=== PATIENT | female | born 2000 | race Caucasian/White ===

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

== ENCOUNTER 2021-01-27 16:13 | Emergency (ER) | payer OTHER ==
[~2021-01-27] VITALS: Ht 170.2 cm; Wt 68.6 kg
[~2021-01-27 16:13] MED LIST changes: +SENN-121 PO
[2021-01-27 16:15] VITALS: BP 134/75
--- NOTE | 2021-01-27 17:01 | PHYS DOC ---
Past History Past Medical History: Anemia (RACIEL CONNER APRN) Past Surgical History: No Surgical History (RACIEL CONNER APRN) Smoking: Non-smoker Alcohol Use: None Drug Use: None (RACIEL CONNER APRN) General Adult EDM: Chief Complaint: TEST HPI: HPI: Patient is a 20-year-old female who presents with concerns of . Patient states "I have taken several tests at home and all of them been negative". "I have been having breast tenderness, irritability, nausea in the mornings". LMP 01/16. Denies abdominal pain. Denies urinary symptoms. History of anemia. (RACIEL CONNER APRN) Review of Systems: Review of Systems: Constitutional: Denies fever or chills Eyes: Denies change in visual acuity HENT: Denies nasal congestion or sore throat Respiratory: Denies cough or shortness of breath Cardiovascular: Denies chest pain or edema GI: Denies abdominal pain, patient reports nausea in the morning. Denies vomiting : Denies dysuria Musculoskeletal: Denies back pain or joint pain Integument: Denies rash Neurologic: Denies headache, focal weakness or sensory changes Endocrine: Denies polyuria or polydipsia Lymphatic: Denies swollen glands Psychiatric: Denies depression or anxiety (RACIEL CONNER APRN) Allergies: Allergies: Allergies Coded Allergies Type Severity Reaction Last Updated Verified No Known Drug Allergies 01/27/21 No (RACIEL CONNER APRN) Physical Exam: PE: Constitutional: Well developed, well nourished, no acute distress, non-toxic appearance. [] HENT: Normocephalic, atraumatic, bilateral external ears normal, oropharynx moist, no oral exudates, nose normal. [] Eyes: PERRLA, EOMI, conjunctiva normal, no discharge. [] Neck: Normal range of motion, no tenderness, supple, no stridor. [] Cardiovascular:Heart rate regular rhythm, no murmur [] Lungs & Thorax: Bilateral breath sounds clear to auscultation [] Abdomen: Bowel sounds normal, soft, no tenderness, no masses, no pulsatile masses. [] Skin: Warm, dry, no erythema, no rash. [] Back: No tenderness, no CVA tenderness. [] Extremities: No tenderness, no cyanosis, no clubbing, ROM intact, no edema. [] Neurologic: Alert and oriented X 3, normal motor function, normal sensory function, no focal deficits noted. [] Psychologic: Affect normal, judgement normal, mood normal. [] (RACIEL CONNER APRN) Current Patient Data: Labs: Laboratory Tests Test 01/27/21 16:55 POC Urine HCG, Qualitative hcg negative (Negative) Vital Signs: Vital Signs Date Time Temp Pulse Resp B/P (MAP) Pulse Ox O2 Delivery O2 Flow Rate FiO2 01/27/21 16:15 98.1 98 16 134/75 (94) 97 Room Air (RACIEL CONNER APRN) EKG: EKG: [] (RACIEL CONNER APRN) Radiology/Procedures: Radiology/Procedures: [] (RACIEL CONNER APRN) Heart Score: C/O Chest Pain: No Risk Factors: Risk Factors: DM, Current or recent (<one month) smoker, HTN, HLP, family history of CAD, obesity. Risk Scores: Score 0 - 3: 2.5% MACE over next 6 weeks - Discharge Home Score 4 - 6: 20.3% MACE over next 6 weeks - Admit for Clinical Observation Score 7 - 10: 72.7% MACE over next 6 weeks - Early Invasive Strategies (RACIEL CONNER APRN) Course & Med Decision Making: Course & Med Decision Making Pertinent Labs and Imaging studies reviewed. (See chart for details) [] 20-year-old female presents with concerns for . Last menstrual period was January 16. Patient given test in the emergency room which was negative. Informed patient of results. Patient denies any abdominal pain. No indication for CT at this time. Patient will be discharged to home. Patient is hemodynamically stable. (RACIEL CONNER APRN) Dragon Disclaimer: Dragon Disclaimer: This electronic medical record was generated, in whole or in part, using a voice recognition dictation system. (RACIEL CONNER APRN) Attending Co-Sign The patient was seen and interviewed as well as examined at the bedside. The chart was reviewed. The case was discussed. Agree with the plan of care. (CRUZ CORTÉS DO) Departure Departure: Impression: Primary Impression: test negative Disposition: HOME / SELF CARE / HOMELESS Condition: STABLE Referrals: ERIC CHO DO (PCP) Patient Instructions: Breast Tenderness Additional Instructions: You were seen in the emergency room for possible . test emergency room was negative. Please return emergency room for worsening symptoms or concerns EMERGENCY DEPARTMENT GENERAL DISCHARGE INSTRUCTIONS Thank you for coming to [facility] (ED) today and trusting us with you care. We trust that you had a positivie experience in our Emergency Department. If you wish to speak to the department management, you may call the director at [phone]. YOUR FOLLOW UP INSTRUCTIONS ARE FOLLOWS: 1. Do you have a private Doctor? If you do not have a private doctor, please ask for a resource list of physicians or clinics that may be able to assist you with follow up care. 2. The Emergency Physician has interpreted your x-rays. The X-Ray specialist will also review them. If there is a change in the findings, you will be notified in 48 hours when at all possible. 3. A lab test or culture has been done, your results will be reviewed and you will be notified if you need a change in treatment. ADDITIONAL INSTRUCTIONS AND INFORMATION: 1. Your care today has been supervised by a physician who is specially trained in emergency care. Many problems require more than one evaluation for a complete diagnosis and treatment. We recommend that you schedule your follow up appointment as recommended to ensure complete treatment of you illness or injury. If you are unable to obtain follow up care and continue to have a problem, or if your condition worsens, we recommend that you return to the ED. 2. We are not able to safely determine your condition over the phone nor are we able to give sound medical advice over the phone. For these safety reasons, if you call for medical advice we will ask you to come to the ED for further evaluation. 3. If you have any questions regarding these discharge instructions please call the ED at [phone]. SAFETY INFORMATION: In the interest of safety, wellness, and injury prevention; we encourage you to wear your sealbelt, if you smoke; quite smoking, and we encourage family to use a protective helmet for bicycling and other sporting events that present an increased risk for head injury. IF YOUR SYMPTOMS WORSEN OR NEW SYMPTOMS DEVELOP, OR YOU HAVE CONCERNS ABOUT YOUR CONDITION; OR IF YOUR CONDITION WORSENS WHILE YOU ARE WAITING FOR YOUR FOLLOW UP APPOINT MENT; EITHER CONTACT YOUR PRIMARY CARE DOCTOR, THE PHYSICIAN WHOSE NAME AND NUMBER YOU WERE GIVEN, OR RETURN TO THE ED IMMEDIATELY. RACIEL CONNER APRN Jan 27, 2021 17:01 CRUZ CORTÉS DO Jan 28, 2021 06:40
== END 2021-01-27 18:04 | disposition home or self-care (01) ==
LOC: ER 16:13
DX: Z32.02 Encounter for pregnancy test, result negative (principal)
CPT/HCPCS: 81025; 99282

== ENCOUNTER 2021-03-13 22:02 | Emergency (ER) | payer OTHER ==
[~2021-03-13] VITALS: Ht 170.2 cm; Wt 67.4 kg
--- NOTE | 2021-03-13 23:56 | RAD ---
CT HEAD/BRAIN WO History: Reason: CHI, Injury to face and head, headache, light sensitivity / Spl. Instructions: / Hi story: Comparison: None. Technique: Noncontrast CT imaging was performed of the head. Exposure: One or more of the following individualized dose reduction techniques were utilized for thi s examination: 1. Automated exposure control 2. Adjustment of the mA and/or kV according to patient size 3. Use of iterative reconstruction technique. Findings: No intracranial hemorrhage. No mass effect. No hydrocephalus. Extra-axial spaces are unremarkable. Imaged orbits are unremarkable. Imaged paranasal sinuses and mastoid air cells are clear. No acute ca lvarial fracture. Impression: 1. No acute intracranial abnormality. Electronically signed by: Jasson Manley DO (03/13/2021 11:54 PM) [facility]
--- NOTE | 2021-03-13 23:57 | RAD ---
XR FACIAL BONES COMPLETE 3+ VIEWS History: Reason: Injury, hit on left side of face, pain, light sensitivity / Spl. Instructions: / Ak story: Technique: 3 views facial bones. Comparison: None. Findings: No definite fracture. Normal alignment. Patent paranasal sinuses. Impression: 1. No definite acute osseous abnormality. If persistent clinical concern, CT can better evaluate. Electronically signed by: Jasson Manley DO (03/13/2021 11:55 PM) [facility]
--- NOTE | 2021-03-14 00:05 | PHYS DOC ---
Past History Past Medical History: Anemia Past Surgical History: No Surgical History Smoking: Non-smoker Alcohol Use: None Drug Use: None General Adult EDM: Chief Complaint: HEAD INJURY/TRAUMA HPI: HPI: 20-year-old otherwise healthy female comes to the emergency department stating that approximate 24 hours ago while she was at work at [employer] a colleague had accidentally dropped a piece of a tile cutting saw onto her left side of her face and head, denies any loss of consciousness at the time of the injury, she complains of a dull and throbbing pain in the front of her left cheek, some nausea, dizziness and also reported some photophobia but denies any blurred vision or vision loss, no neck pain, no focal numbness/tingling face, arms or legs. No loss of bowel or bladder control, no back pain, chest pain or e xtremity pain at this time. Review of Systems: Review of Systems: General: no fevers , no chills, no general weakness Eyes: no blurred vision, no diplopia Skin: no rashes Neck: no swelling, no neck stiffness, no neck pain Heme: no bleeding, no lymph node enlargement Ear/Nose/Throat: No sore throat, no runny nose, no hearing loss, no difficulty swallowing, positive for left-sided facial pain Cardiovascular: no Chest pain, no palpitations Respiratory: No dyspnea, no cough, no hemoptysis Gastrointestinal: No abdominal pain, \+ nausea, no vomiting, no diarrhea, no blood in stool Genitourinary: no dysuria, no hematuria Musculoskeletal: no back pain, no leg pain, no arm pain, no arthralgia Neurologic: + headaches, no dizziness, no focal numbness/tingling, no focal weakness Psych: no depression, no anxiety, no SI/HI *All review of systems are negative other than what is noted above Allergies: Allergies: Allergies Coded Allergies Type Severity Reaction Last Updated Verified No Known Drug Allergies 03/13/21 No Physical Exam: PE: Gen-well appearing, no acute distress Head: Normocephalic/Atraumatic ENT: atraumatic, although there is some mild tenderness some the left maxillary region, no intraoral injuries, no septal hematoma, no tenderness on the mastoid processes bilaterally PERRLA, EOMI, oropharynx clear Neck: supple, full ROM/strength, no JVD, no nuchal rigidity, there is no midline cervical spinal tenderness Lungs: no distress, speaks in full sentences, Clear to auscultation bilaterally CV: reg rate, rhythm, no murmus/rubs/gallops, peripheral pulses equal in all extremities Abdomen: soft/nontender, no guarding/rebound tenderness, no rigidity, non distended, normoactive bowel sounds Musculoskeletal: full ROM/strength in all extremities, atraumatic, no swelling Back: full range of motion/strength Skin: intact, no rashes Lymph: no gross ATUL Neuro: alert and oriented x 4, CN 2-12 grossly intact, Motor strength is 5/5 in all extremities, no focal sensory deficits, no focal ataxia, ambulatory with steady gait Psych: normal mood/affect Current Patient Data: Vital Signs: Vital Signs Date Time Temp Pulse Resp B/P (MAP) Pulse Ox O2 Delivery O2 Flow Rate FiO2 03/13/21 22:40 98.3 63 20 140/88 (105) 100 Room Air EKG: EKG: [] Radiology/Procedures: Radiology/Procedures: [] Heart Score: C/O Chest Pain: No Risk Factors: Risk Factors: DM, Current or recent (<one month) smoker, HTN, HLP, family history of CAD, obesity. Risk Scores: Score 0 - 3: 2.5% MACE over next 6 weeks - Discharge Home Score 4 - 6: 20.3% MACE over next 6 weeks - Admit for Clinical Observation Score 7 - 10: 72.7% MACE over next 6 weeks - Early Invasive Strategies Course & Med Decision Making: Course & Med Decision Making 20-year-old otherwise healthy female comes to the emergency department complaining of facial pain and symptomatology and exam findings appear to be consistent with a mild concussion, she is neurologically intact however given the nature of this and that it was Workmen's Comp. I will get a head CT to be on the safe side, she is negative according to Nexus criteria no claudication for cervical spinal imaging, do a plain film x-ray of the facial bones, if the CT is negative I will refer her to primary care for close outpatient follow-up Reevaluation at 12:04 AM: The imaging is negative and I believe she stable for discharge for close outpatient primary care follow-up Patient was seen in the ED for close head injury and facial contusion, imaging was negative and she clinically improved, there is no apparent evidence of any emergency medical pathology at this time, patient was advised follow-up with their primary care provider /physician in the next 24-48 hours and to return to the ED before then if any new or worsening / concerning symptoms had developed. All questions and concerns were addressed at time of disposition Will Disclaimer: Dragon Disclaimer: This electronic medical record was generated, in whole or in part, using a voice recognition dictation system. Departure Departure: Impression: Primary Impression: Concussion Qualified Codes: S06.0X0A - Concussion without loss of consciousness, initial encounter Additional Impression: Facial contusion Qualified Codes: S00.83XA - Contusion of other part of head, initial encounter Disposition: HOME / SELF CARE / HOMELESS Condition: IMPROVED Referrals: ERIC COH DO (PCP) 48 hours Patient Instructions: Concussion-SportsMed Additional Instructions: The scans and x-rays are okay, nothing to worry about, you do have a mild concussion, this should get better in the next 5 to 7 days, I wrote you a work note, you can take Tylenol or ibuprofen for pain, please follow-up with primary care in the next 48 hours and return to the nearest emergency room before then if any new or worsening/concerning symptoms develop. If you still continue to experience dizziness I did recommend your primary care doctor order you some blood work especially given that you have a history of anemia, I do not believe that anemia is the reason that you are dizzy especially given the head injury REY MORENO MD Mar 14, 2021 00:05
[2021-03-14 00:42] VITALS: BP 137/75
== END 2021-03-14 00:30 | disposition home or self-care (01) ==
LOC: ER 22:02
DX: S06.0X0A Concussion without loss of consciousness, initial encounter (principal); S00.83XA Contusion of other part of head, initial encounter; Z86.2 Personal history of diseases of the blood and blood-forming organs and certain disorders involving the immune mechanism; W20.8XXA Other cause of strike by thrown, projected or falling object, initial encounter; Y93.89 Activity, other specified; Y92.89 Other specified places as the place of occurrence of the external cause; Y99.8 Other external cause status
CPT/HCPCS: 70150; 70450; 99284-25

== ENCOUNTER 2021-04-08 02:02 | Emergency (ER) | payer OTHER ==
[~2021-04-08] VITALS: Ht 170.2 cm; Wt 67.9 kg
[2021-04-08] MEDS ORDERED: LIDOCAINE/EPI/TETRACAINE TOPICAL GEL 3 ML. TP ONE ×2 (02:20→02:30)
--- NOTE | 2021-04-08 02:26 | PHYS DOC ---
Past History Past Medical History: Anemia Past Surgical History: No Surgical History Smoking: Non-smoker Alcohol Use: None Drug Use: None Adult General Chief Complaint Chief Complaint: EARACHE/EAR PAIN HPI HPI Patient is a 20-year-old female who presents with a chief complaint of earring stuck in her ear. States she was trying to take it out and it got caught and she has been unable to get it out since. Review of Systems Review of Systems Review of systems otherwise unremarkable except noted in HPI Current Medications Current Medications Current Medications Medications (Trade) Dose Ordered Sig/Ambrocio Start Time Stop Time Status Last Admin Dose Admin Lidocaine/ Epinephrine (Let ([id number]) Gel) 3 ml STK-MED ONCE 04/08/21 02:20 04/08/21 02:21 DC Allergies Allergies Allergies Coded Allergies Type Severity Reaction Last Updated Verified No Known Drug Allergies 03/13/21 No Physical Exam Physical Exam Constitutional: Well developed, well nourished, no acute distress, non-toxic appearance. [] HENT: Normocephalic, atraumatic, bilateral external ears normal, oropharynx moist, no oral exudates, nose normal. [] Eyes: conjunctiva normal, no discharge. [] Neurologic: Alert and oriented X 3, no focal deficits noted. [] Psychologic: Affect normal, judgement normal, mood normal. [] EKG EKG [] Radiology/Procedures Radiology/Procedures [] Heart Score C/O Chest Pain: No Risk Factors: Risk Factors: DM, Current or recent (<one month) smoker, HTN, HLP, family history of CAD, obesity. Risk Scores: Risk Factors: DM, Current or recent (<one month) smoker, HTN, HLP, family history of CAD, obesity. Course & Med Decision Making Course & Med Decision Making Patient is a 20-year-old female who presents with earring stuck in her piercing hole Vital signs are concerning. Physical exam noted above. L ET placed for topical anesthesia. Earring removed without issue. Gave patient pain medication. Given dose of antibiotics. Advised to follow-up with primary care physician on Friday to set up reevaluation. Advised not to put any more earrings through the hole until it heals. Return precautions to the ED. Patient grateful, verbalized understanding and agreed with plan of discharge. [] Dragon Disclaimer Dragon Disclaimer This electronic medical record was generated, in whole or in part, using a voice recognition dictation system. Departure Departure: Impression: Primary Impression: Embedded earring Disposition: HOME / SELF CARE / HOMELESS Condition: GOOD Referrals: ERIC CHO DO (PCP) Patient Instructions: Wound Care, [id number] Additional Instructions: Thank you for coming into the emergency department tonight and allow us to take care of you. Please keep the area clean and dry using warm water and soap. Please do not place any more earrings in this until it is healed. Please follow-up with your primary care physician on Friday to update on ED visit and set up a follow-up visit for wound check. Please come back to the ED with new or concerning symptoms as discussed. TINA BOLAND MD Apr 08, 2021 02:26
[2021-04-08 02:28] VITALS: BP 119/76
[2021-04-08] MEDS ORDERED: CEPHALEXIN 250 MG CAPSULE PO ONE (03:30)
[2021-04-08] MEDS ORDERED: oxyCODONE/APAP 5/325 1 TAB TABLET PO ONE (03:30)
== END 2021-04-08 03:01 | disposition home or self-care (01) ==
LOC: ER 02:02
DX: T16.1XXA Foreign body in right ear, initial encounter (principal); Z86.2 Personal history of diseases of the blood and blood-forming organs and certain disorders involving the immune mechanism; X58.XXXA Exposure to other specified factors, initial encounter; Y93.9 Activity, unspecified; Y92.89 Other specified places as the place of occurrence of the external cause; Y99.8 Other external cause status
CPT/HCPCS: 99284

== ENCOUNTER 2021-07-13 12:22 | Emergency (ER) | payer OTHER ==
[~2021-07-13] VITALS: Ht 170.2 cm; Wt 67.9 kg
--- NOTE | 2021-07-13 13:45 | PHYS DOC ---
Past History Past Medical History: Anemia Past Surgical History: No Surgical History Smoking: Non-smoker Alcohol Use: None Drug Use: None Adult General Chief Complaint Chief Complaint: SKIN RASH/ABSCESS [facility] Patient is a 21-year-old female presenting for rash. This was new onset was first noticed yesterday without any known inciting event, trauma, ingestion, mechanism of injury, exposure to another known allergen. She has never had anything like this in the past. States she went to bed and woke up today with same red slightly raised asymptomatic rash present mostly around her face that spares mucosal area, denies any airway involvement. Reports she was concerned as she left a tampon in for approximately 8 hours while on her period and read about toxic shock syndrome prompting her to come in for evaluation. She is otherwise healthy with no known medical issues, takes no medications on a daily basis and has been at baseline health without any recent sick contacts. She has no significant family history of any congenital or autoimmune abnormalities Review of Systems Review of Systems Fourteen body systems of review of systems have been reviewed. See HPI for pertinent positives and negative responses, other nowak all other systems are negative, non-pertinent or non-contributory Allergies Allergies Allergies Coded Allergies Type Severity Reaction Last Updated Verified No Known Drug Allergies 04/08/21 No Physical Exam Physical Exam Constitutional: Well developed, well nourished, no acute distress, non-toxic appearance. HENT: Normocephalic, atraumatic, bilateral external ears normal, oropharynx moist, airway intact, tolerating secretions, no phonation changes, no oral exudates, nose normal. Eyes: PERRLA, EOMI, conjunctiva normal, no discharge. Neck: Normal range of motion, no tenderness, supple, no stridor. Cardiovascular: Heart rate regular, sinus rhythm, no murmurs rubs or gallops Lungs & Thorax: Bilateral breath sounds clear to auscultation Abdomen: Bowel sounds normal, soft, no tenderness, no masses, no pulsatile masses. Nonsurgical abdomen, no peritoneal signs Skin: Warm, dry, slightly raised erythematous rash present to face over nose, cheeks, and neck without any pustule formation, crepitus, streaking, mucosal involvement, sloughing or other concerning findings Back: No tenderness, no CVA tenderness. Extremities: No tenderness, no cyanosis, no clubbing, ROM intact, no edema. Neurologic: Alert and oriented X 3, grossly normal motor & sensory function, no focal deficits noted. Psychologic: Affect normal, judgement normal, mood normal. Current Patient Data Vital Signs Vital Signs Date Time Temp Pulse Resp B/P (MAP) Pulse Ox O2 Delivery O2 Flow Rate FiO2 07/13/21 13:58 100.8 74 18 121/69 (86) 99 Room Air Vital Signs Date Time Temp Pulse Resp B/P (MAP) Pulse Ox O2 Delivery O2 Flow Rate FiO2 07/13/21 13:58 100.8 74 18 121/69 (86) 99 Room Air EKG EKG [] Radiology/Procedures Radiology/Procedures [] Heart Score C/O Chest Pain: No Risk Factors: Risk Factors: DM, Current or recent (<one month) smoker, HTN, HLP, family history of CAD, obesity. Risk Scores: Risk Factors: DM, Current or recent (<one month) smoker, HTN, HLP, family history of CAD, obesity. Course & Med Decision Making Course & Med Decision Making ABCs unremarkable History and physical exam nonconcerning for any emergent or surgical issues There is no evidence and/or concern for respiratory impairment or anaphylaxis Patient has localized skin reaction to face and neck only, tolerating secretions with no phonation changes Unknown etiology. Joint decision to treat as nonsevere allergic reaction with steroids and antihistamines with close outpatient follow-up Strict return precautions discussed with good understanding by patient. I disclosed need for this as cardiologist and/or dermatology referral might be indicated if symptoms return Strict return precautions discussed with good understanding by patient, all questions and concerns addressed prior to ER departure Dragon Disclaimer Dragon Disclaimer This electronic medical record was generated, in whole or in part, using a voice recognition dictation system. Departure Departure: Impression: Primary Impression: Rash Disposition: HOME / SELF CARE / HOMELESS Condition: STABLE Referrals: ERIC CHO DO (PCP) Additional Instructions: As discussed prior to ER departure, your vitals and comprehensive physical exam were nonconcerning for any emergent or surgical issues. Your symptoms were not concerning for toxic shock syndrome. Your symptoms were however concerning for an unknown dermatitis and/or reaction to an unknown allergen. As discussed, there is little indication for further diagnostic work-up in ER setting. Supportive care practices with Pepcid administered in ER with further instructions for Benadryl use and Medrol Dosepak steroids to be used on hospital discharge. Please contact your primary care physician to review ER visit today and need for close outpatient follow-up to ensure continued resolution of symptoms. If any concerning signs or symptoms present prior to outpatient follow-up please do not hesitate to come back for repeat evaluation Scripts Methylprednisolone (MEDROL) 4 Mg Tab.ds.pk 1 PKG PO UD for RASH, #1 PKG Prov: LIANE MENDOZA DO 07/13/21 LIANE MENDOZA DO Jul 13, 2021 13:45
[2021-07-13 13:58] VITALS: BP 121/69
[2021-07-13] MEDS ORDERED: METH4TAB2 PO (13:59)
[2021-07-13] MEDS ORDERED: predniSONE 20 MG TABLET PO ONE (14:00)
[2021-07-13] MEDS ORDERED: FAMOTIDINE 20 MG TABLET PO ONE (14:00)
== END 2021-07-13 14:20 | disposition home or self-care (01) ==
LOC: ER 12:22
DX: R21 Rash and other nonspecific skin eruption (principal)
CPT/HCPCS: 99283; J7512